=== PATIENT | female | born 1975 | race Caucasian/White ===

== ENCOUNTER → 2016-09-30 | Outpatient (CLI) | payer BC | END | disposition home or self-care (01) | LOC: ORTHO 02:40 | DX: M67.432 Ganglion, left wrist (principal) ==

== ENCOUNTER → 2016-10-04 | Outpatient (CLI) | payer BC ==
[2016-10-04 10:27] LABS: BASO % 0.3 % (0.0-1.0); EOS # 0.2 10*3/uL (0.0-0.4); EOS % 2.9 % (1.0-4.0); HEMATOCRIT 35.7 % (37.0-47.0); HEMOGLOBIN 11.9 g/dl (12.0-16.0); LYMPH # 1.9 10*3/uL (1.3-4.4); LYMPH % 31.8 % (27.0-41.0); MEAN CELL VOLUME 91.8 fl (81.0-99.0); MEAN CORPUSCULAR HGB 30.6 pg (27.0-31.0); MEAN CORPUSCULAR HGB CONC 33.3 g/dl (33.0-37.0); MEAN PLATELET VOLUME 9.6 fl (9.6-12.3); MONO # 0.4 10*3/uL (0.1-1.0); MONO % 6.9 % (3.0-9.0); NEUT # 3.4 10*3/uL (2.3-7.9); NEUT % 57.9 % (47.0-73.0); PLATELET COUNT AUTOMATED 191 10*3/uL (130-400); RED BLOOD COUNT 3.89 10*6/uL (4.10-5.10); WHITE BLOOD COUNT 5.8 10*3/uL (4.8-10.8)
== END | disposition home or self-care (01) ==
LOC: LAB 09:30
PROVIDERS: Obstetrics & Gynecology
DX: N83.202 Unspecified ovarian cyst, left side (principal)

== ENCOUNTER → 2016-10-10 | Day surgery (SDC) | payer BC ==
[2016-10-04 09:58] VITALS: BP 123/87
[2016-10-10] VITALS (7 sets, daily range): BP systolic 101–108; BP diastolic 43–60
[~2016-10-10] VITALS: Ht 175.2 cm; Wt 104.3 kg
[~2016-10-10] MED LIST: PERCOCET 325 MG1 TA2 PO
--- NOTE | ~2016-10-10 | O ---
[place], [place] OPERATIVE NOTE NAME: [id number] UNIT #: [id number] ROOM: DOCTOR: LEONIDAS SETH MD BIRTHDATE: [birth year] DOS: 10/10/2016 PREOPERATIVE DIAGNOSIS: Large left ovarian cyst, but a history of chronic right lower quadrant pain. POSTOPERATIVE DIAGNOSES: Large left ovarian cyst, but with a history of chronic right lower quadrant pain with a negative pelvis other than a large left ovarian cyst and 2 small posterior subserosal uterine fibroids. OPERATION: Diagnostic operative laparoscopy, left salpingo-oophorectomy, and partial drainage of the left ovarian cyst to send that fluid for cytology. It appeared grossly benign. SURGEON: Leonidas Seth M.D., and Dr. Silvestre. ANESTHESIA: General. ESTIMATED BLOOD LOSS: Extremely minimal with the surgery. CONDITION: The patient's condition to recovery was stable. OPERATIVE SUMMARY: The patient was taken to the operating room in supine position, general anesthesia, endotracheal intubation, lithotomy position, prepped and draped in routine manner. The cervix was visualized, grasped with a tenaculum, cervical manipulator placed, and a Orozco placed to straight drain. Infraumbilical, suprapubic, and right lower quadrant incisions were then made. Through the infraumbilical incision, we placed a 5 mm trocar sleeve and laparoscope under direct visualization followed by insufflation with CO2. Once this was accomplished, we placed a 5 mm trocar and sleeve through the suprapubic incision and then placed a 12 mm trocar and sleeve through the right lower quadrant incision. Examination of the pelvis revealed the anterior and posterior cul-de-sacs to be normal. The uterus was overall normal in size and configuration and mobility except for a small fundal and a small lower uterine segment subserosal fibroid, both posteriorly. The right tube and ovary was completely normal. The right side of the pelvis was completely normal. Left tube was normal. The left ovary was completely replaced with a large ovarian cyst. The patient's appendix, ascending colon, descending colon, upper abdomen, liver edge, etc., were all within normal limits. Once this was completed, through our 12 mm port in the right lower quadrant, we placed a LigaSure, and taking successive pedicles, we removed the left tube and ovary intact. We had drained a portion of the fluid from the ovary itself for cytology. Once this was completed, we again as I say removed the left tube and ovary using LigaSure in successive pedicles and then placed the specimen in an EndoCatch bag and removed this through the right lower quadrant incision. We examined very carefully thereafter and noted good hemostasis along our left operative site internally. The ureter was peristalsing normally and well below our operative site. We removed any extra fluid or any spillage from the posterior cul-de-sac and again noted completely normal posterior cul-de-sac. Once this was completed, the two lower abdominal trocar sleeves and instrumentation were removed, and noting good hemostasis in the anterior abdominal wall, we allowed [place], [place] OPERATIVE NOTE NAME: JULI GAXIOLA UNIT #: [id number] ROOM: DOCTOR: LEONIDAS SETH MD BIRTHDATE: [birth year] CO2 to escape, followed by removal of the infraumbilical trocar sleeve and laparoscope. Suprapubic and infraumbilical incisions were closed with subcuticular 3-0 Monocryl suture. The fascia was reapproximated in the right lower quadrant incision with several interrupted 2-0 Vicryl sutures, the subcutaneous tissue with one 2-0 Vicryl suture, and the skin closed with 3 interrupted 3-0 Monocryl sutures. Steri-Strips and dressings were placed. The patient was cleaned off. The catheter removed with about 400 mL urine output of clear fluid and then the tenaculum and cervical manipulator removed. Noting good hemostasis intravaginally, the patient was taken out of lithotomy position, awakened, extubated, and transferred to recovery in satisfactory condition, stable vital signs, good hemostasis, stable sponge and instrument count. LEONIDAS SETH MD CM:OPRECORD:OPERATIVE NOTE [id number] LEONIDAS SETH MD 10/10/16 142 interface
--- NOTE | ~2016-10-10 | WRIGHTHP ---
[place], [place] PATIENT HISTORY AND PHYSICAL EXAM NAME: JULI GAXIOLA UNIT #: [id number] ROOM: DOCTOR: LEONIDAS SETH MD BIRTHDATE: [birth year] DOS: 10/10/2016 HISTORY OF PRESENT ILLNESS: This is a very pleasant 40-year-old white female, 2, para 2, whose last menstrual period is just at present actually, who was seen on 09/19/2016 with a chief complaint of an enlarged left ovary with a 7.4 x 4.8 cm cyst that seems to be a simple cyst. The patient, however, has had right lower quadrant pain for the past 2 years on and off and states that this has become more constant and this is actually the reason for her visit as much as the cyst. 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 The pain has now become more constant than it had been and is accentuated by bearing down to urinate, have a bowel movement, lifting her weights, etc. The CT scan that had been obtained on 09/01/2016 did reveal the ovarian cyst, but was normal otherwise. I had an excellent discussion with the period about enough being enough and needing answers as well as relief. We discussed diagnostic laparoscopy, left ovarian cystectomy and if there are any adhesions noted from the previous sections, lysis of adhesions. The patient did state understanding to the risks and benefits, indications, complications and alternatives and signed a consent and has been scheduled on 10/10/2016. PAST MEDICAL HISTORY: Reveals a negative Pap in 2016. She has had tubal ligation, the 2 pregnancies and 2 C-sections. PAST SURGICAL HISTORY: She has had a right knee arthroscopy for ACL tear. She smokes less than 5 cigarettes a day. SOCIAL HISTORY: She does drink alcohol only socially. ALLERGIES: She has no known allergies. MEDICATIONS: Presently taking no medications. REVIEW OF SYSTEMS: Otherwise, is stable. FAMILY HISTORY: Reveals her father to be alive, but having been diagnosed with diabetes and kidney failure as well as hypertension. Her mother has been diagnosed with diabetes. She has a paternal aunt with liver cancer and a paternal grandmother with cancer, but type of cancer is uncertain. PHYSICAL EXAMINATION: GENERAL: Reveals a pleasant white female. She is 5 feet 9 and 232 pounds, BMI is 34.3. VITAL SIGNS: Blood pressure is 116/68 and she is in no apparent distress. HEENT AND NECK, LUNGS, CARDIAC, AND BREASTS EXAM: Stable. ABDOMEN: Tender just to the right and below the umbilicus. On bimanual exam, the tenderness was the same, but there was no palpable mass in the right lower quadrant. Bimanual, otherwise, there is some fullness in the left lower [place], [place] PATIENT HISTORY AND PHYSICAL EXAM NAME: JULI GAXIOLA UNIT #: [id number] ROOM: DOCTOR: LEONIDAS SETH MD BIRTHDATE: [birth year] quadrant, but no mass per se, I think because of body habitus was appreciated. Tenderness actually when we really got down to ____ seemed to be at the right cornual region of the uterus itself. The cervix was normal. As I said, last Pap was negative. The vagina and vulva were also normal. EXTREMITIES AND NEUROLOGIC: Grossly intact. RECTAL: Deferred. ASSESSMENT: 1. Right adnexal tenderness x 2 years, etiology unknown. 2. Left ovarian cyst, which appears to be a simple cyst. 3. The patient is scheduled for surgery for left ovarian cystectomy, diagnostic laparoscopy and perhaps lysis of adhesions on 10/10/2016. A CA-125 was also ordered with her preoperative laboratory work and results are pending at this time. LEONIDAS SETH MD CM:HISPHYS:PATIENT HISTORY AND PHYSICAL EXAMINATION [id number] LEONIDAS SETH MD 10/05/16 1144 interface
== END | disposition home or self-care (01) ==
LOC: SDC 10-04 09:30
PROVIDERS: Obstetrics & Gynecology
DX: D27.1 Benign neoplasm of left ovary (principal); D25.2 Subserosal leiomyoma of uterus; F17.210 Nicotine dependence, cigarettes, uncomplicated; Z82.49 Family history of ischemic heart disease and other diseases of the circulatory system; Z83.3 Family history of diabetes mellitus; Z82.3 Family history of stroke; Z98.51 Tubal ligation status; Z98.890 Other specified postprocedural states

== ENCOUNTER → 2019-10-28 | Outpatient (CLI) | payer OTHER | END | disposition home or self-care (01) | LOC: US 09:26 | DX: D25.9 Leiomyoma of uterus, unspecified (principal); N83.201 Unspecified ovarian cyst, right side ==